=== PATIENT | female | born 1965 | race African-American/Black ===

== ENCOUNTER 2023-06-16 10:35 | Outpatient (CLI) | payer BC, SELFPAY ==
--- NOTE | ~2023-06-16 | XR_ITS ---
EXAMINATION: XR enema water soluble DATE: 06/16/2023 12:14 INDICATION: Intestinal obstruction TECHNIQUE: A director of acquisitions radiograph was obtained. A catheter was inserted into the patient's rectum. Contra st was infused by gravity. Fluoroscopic spot images and conventional radiographs were obtained. A tot al of 47 fluoroscopic images and 11 overhead radiographs were obtained. Fluoroscopy exposure time was 1.4 minutes. COMPARISON: None. FINDINGS: There are multiple scattered diverticula along the descending colon. The sigmoid colon is tortuous wh ich mildly limits evaluation. No discrete stricture or mucosal irregularity suspicious for malignancy identified. There is some reflux of contrast into the distal ileum. Cholecystectomy clips in right u pper quadrant. There appears be a suture line in the left hemidiaphragm IMPRESSION: 1. Tortuous sigmoid colon and moderate diverticulosis along the descending colon. No strictures or stewart spicious mucosal irregularities identified. Reviewed, dictated and finalized at location A. IMPRESSION: 1. Tortuous sigmoid colon and moderate diverticulosis along the descending colo n. No strictures or suspicious mucosal irregularities identified.
== END 2023-06-16 10:36 | disposition home or self-care (01) ==
LOC: ANHIMG 10:37
PROVIDERS: PCP Family Medicine; Visit Provider Surgery
DX: K56.699 Other intestinal obstruction unspecified as to partial versus complete obstruction (principal); K57.30 Diverticulosis of large intestine without perforation or abscess without bleeding
CPT/HCPCS: 74270